=== PATIENT | female | born 1980 | race Caucasian/White ===

== ENCOUNTER → 2016-05-09 | Day surgery (SDC) | payer OTHER ==
[2016-04-25 12:37] VITALS: Ht 154.9 cm; Wt 56.8 kg
[~2016-05-09] VITALS: Ht 154.9 cm; Wt 56.8 kg
[~2016-05-09] MED LIST: ACET1CAP16 PO; ACETAMINOPHEN 325 MG TAB PO PRN; ALPR-411 PO; ALPRTAB PO; ARGI500T PO; ATROPINE SULFATE 0.1 MG/ML 5ML SYR IV PRN; BSS FLUSH ONE; CHOL1000 PO; EpHEDrine SULFATE INJ 50 MG/ML AMP IV PRN; FENTANYL CITRATE INJ 50 MCG/1 ML 2 ML VIAL ONE; FLUV25TA2 PO; GENERAL ORDER PROBLEM SCH; LACTATED RINGER'S 1000ML 500 ML IV ONE; LIDOCAINE 3.5% OPH GEL PER APPLICATION CHARGE OPR SCH; LIDOCAINE 4% OP SOLN DROP CHARGE ONE; LIDOCAINE 4% OP SOLN DROP CHARGE OPR SCH; LIDOCAINE HCL 1% MPF 2 ML VIAL ONE; MAGN500T4 PO; MIDAZOLAM HCL 1 MG/ML 2ML VIAL ONE; MOXIFLOXACIN OPH SOLN PER DROP CHARGE ONE; MULT-506 PO; ONDANSETRON INJ 2 MG/ML 2 ML VIAL ONE; OREGCAP PO; PHEN500T PO; POVIDONE-IODINE OP SOLN 30 ML BTL ONE; PROB1TAB16 PO; PROPARACAINE 0.5% OP SOLN PER DROP CHARGE OPR SCH; SPR28 PO; TAUR500C PO; TYRO500C2 PO; [UNRECOGNIZED DRUG - CODE] PO; [UNRECOGNIZED DRUG - OTHER] PO
[2016-05-09] MEDS: MOXIFLOXACIN OPH SOLN PER DROP CHARGE OPR SCH ×3 (11:11→11:29)
--- NOTE | 2016-05-09 11:20 | History & Physical Bridge - [place] ---
H&P Re-Evaluation Bridge Note: I have examined the patient, reviewed the History & Physical and in the interval since the performance of the History & Physical I have noted the following changes of clinical significance: No changes noted
--- NOTE | 2016-05-09 12:24 | [facility] Post Operative Brief Note ---
Immediate Operative Summary Operative Date May 09, 2016. 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 Javier Manager Software Development Surgeon(s) None Estimated Blood Loss 0 Findings heath's nodule right eye Specimens A. Corneal Scar/Salzmans Nodule Right Eye Complication(s) None Disposition Recovery Room / PACU
--- NOTE | 2016-05-09 12:24 | Discharge Instructions-SurgCtr ---
Discharge Instructions Date of Service May 09, 2016. Visit Reason for Visit: Right Eye Nodular Corneal Degeneration Discharge Discharge Diagnosis / Problem: heath's nodule right eye Discharge Goals Goal(s): Improve function Activity Recommendations Activity Limitations: per Instructions/Follow-up section Anesthesia . Post Anesthesia Instructions: If you have had General Anesthesia or IV Sedation: * Do not drive today. * Resume driving when surgeon permits. * Do not make important decisions or sign legal documents today. * Call surgeon for: 1. Temperature elevations greater than 101 degrees F. 2. Uncontrollable pain. 3. Excessive bleeding. 4. Persistent nausea and vomiting. 5. Medication intolerance (nausea, vomiting or rash). * For nausea and vomiting use only clear liquids such as: tea, soda, bouillon until nausea subsides, then gradually increase diet as tolerated. * If you have any concerns or questions, call your surgeon's office. If physician is unavailable and it is an emergency, call 911 or go to the nearest emergency room. . Instructions / Follow-Up Instructions / Follow-Up ACTIVITY RECOMMENDATIONS: * Light activities * You may walk outside, read, watch television. * Mild irritation and blurred vision are common for the first few days, redness around the white part of the eye is common. MEDICATIONS: Resume previous medications unless instructed otherwise by your surgeon. Eye drops (today and tomorrow): Cipro - one drop in operative eye every 2 hours while awake Prednisolone 1% - one drop in operative eye every 2 hours while awake Vicodin 5/300 1 tablet by mouth every 6 hours as needed for pain SPECIAL CARE INSTRUCTIONS: * If any problems or concerns, please call Dr. Javier's office at . FOLLOW UP VISIT: Follow-up with Dr. Javier in the [place] office as scheduled. If not already scheduled, please call the office at . Diet Recommendations Home Diet: resume previous diet Procedures Procedures Performed: Right Eye Lamellar Keratectomy Pending Studies Studies pending at discharge: yes List of pending studies: cornea path report Medical Emergencies . Who to Call and When: Medical Emergencies: If at any time you feel your situation is an emergency, please call 911 immediately. . Non-Emergent Contact Non-Emergency issues call your: Circle Cutting Saw Operator . . "Provider Documentation" section prepared by Chan Javier.
--- NOTE | 2016-05-09 12:41 | Anesthesia Progress Nt - [facility] ---
Anesthesia Post Op Note Date & Time May 09, 2016 at 12:41 Vital Signs Pain Intensity: 0 Vital Signs Past 12 Hours Date Time Temp Pulse Resp B/P Pulse Ox O2 Delivery O2 Flow Rate FiO2 05/09/16 12:22 36.5 95 16 109/62 97 Room Air 05/09/16 11:09 36.7 97 16 125/82 99 Room Air Notes Mental Status: alert / awake / arousable, participated in evaluation Pt Amnestic to Procedure: Yes Nausea / Vomiting: adequately controlled Pain: adequately controlled Airway Patency, RR, SpO2: stable & adequate BP & HR: stable & adequate Hydration State: stable & adequate Anesthetic Complications: no major complications apparent
[2016-05-09 12:44] VITALS: BP 101/69; PULSE 71; O2SAT 96
--- NOTE | 2016-05-09 13:20 | OPERATIVE REPORT ---
DATE OF OPERATION: 05/09/2016 PREOPERATIVE DIAGNOSIS: Salzmann's nodular degeneration, right eye. POSTOPERATIVE DIAGNOSIS: Same. PROCEDURE PERFORMED: Lamellar keratectomy, right eye. COMPLICATIONS: None. ESTIMATED BLOOD LOSS: Minimal. ANESTHESIA: Local with sedation. DESCRIPTION OF PROCEDURE: After informed consent was obtained in the holding area, the patient was taken back to the operating room where cardiac monitoring leads and oxygen by nasal cannula was administered by anesthesia. Gentle IV sedation was given and the patient's right eye was prepped and draped in usual sterile fashion. A wire lid speculum was placed in the right eye and the operating microscope was swung into position. Using a [place] yakama blade, the epithelium was removed over the area of Salzmann's nodule on the superior and superior nasal cornea of the right eye. A dividing plane was found and the Salzmann's nodule was reflected up off the cornea and removed. Cautery of one bleeding limbal vessel was done to stop it from bleeding and a bandage contact lens was then placed on the eye. Vigamox was then placed on the eye. The wire lid speculum was removed from the eye, and the patient was taken to recovery in a stable condition. I attest to the content of the Intraoperative Record and any orders documented therein. Any exceptions are noted below. BRUNAD
== END | disposition home or self-care (01) ==
LOC: X.SURG 10:57
PROVIDERS: ATTEND Ophthalmology
DX: H18.451 Nodular corneal degeneration, right eye (principal); H53.8 Other visual disturbances; Z87.891 Personal history of nicotine dependence